=== PATIENT | female | born 1990 | race Caucasian/White ===

== ENCOUNTER 2017-02-12 14:22 | Emergency (ER) | payer SELFPAY ==
[~2017-02-12] VITALS: Ht 157.5 cm; Wt 60.0 kg
[~2017-02-12 14:22] MED LIST: CEPH500C3 PO; CLIN150 PO; DICL75 PO; IBUP600 PO; SULF1TAB47 PO
[2017-02-12 14:26] VITALS: BP 118/87; PULSE 16; PULSE 85; RESP 17; TEMP 98.2; O2SAT 98
[2017-02-12] MEDS ORDERED: CLINDAMYCIN PHOS 600 MG/4 ML VIAL IM ONE (14:45)
[2017-02-12] MEDS ORDERED: CLIN1CAP5 PO (14:50)
[2017-02-12] MEDS ORDERED: BACT800T5 PO (14:50)
--- NOTE | 2017-02-12 14:50 | PD ---
HPI Chief Complaint: Skin Problem Time Seen by Provider: 14:35 Travel History International Travel<30 days: No Contact w/Intl Traveler<30days: No Traveled to known affect area: No History of Present Illness HPI 26-year-old female complains of redness swelling pain left forearm. Patient has history IV drug abuse. Patient states that she started having infected lesions on the left forearm about 2 and half weeks ago. Patient states that her condition could worse since then. Patient denies any headache. Patient denies any chest pain or shortness of breath. Patient denies abdominal pain. Patient denies any back pain. Patient denies any focal weakness or numbness of the extremity. Patient denies any fever chills. Patient's up-to-date with TD booster. PFSH Past Medical History Anemia: Yes Diminished Hearing: No Integumentary: Yes (PSORIASIS) ?: Not LMP: 02/02/17 Social History Alcohol Use: No Tobacco Use: Yes Substance Use: Yes (HISTORY OF IV DRUG HISTORY) Allergies-Medications (Allergen,Severity, Reaction): Coded Allergies: No Known Allergies (Unverified , 06/25/13) Reported Meds & Prescriptions Reported Meds & Active Scripts Active Review of Systems General / Constitutional: No: Fever Eyes: No: Visual changes HENT: No: Headaches Cardiovascular: No: Chest Pain or Discomfort Respiratory: No: Shortness of Breath Gastrointestinal: No: Abdominal Pain Genitourinary: No: Dysuria Musculoskeletal: Positive: Pain Skin: No Rash Neurologic: No: Weakness Psychiatric: No: Depression Endocrine: No: Polydipsia Hematologic/Lymphatic: No: Easy Bruising Physical Exam Narrative GENERAL: Well-nourished, well-developed patient. SKIN: Focused skin assessment warm/dry. HEAD: Normocephalic. EYES: No scleral icterus. No injection or drainage. NECK: Supple, trachea midline. No JVD or lymphadenopathy. CARDIOVASCULAR: Regular rate and rhythm without murmurs, gallops, or rubs. RESPIRATORY: Breath sounds equal bilaterally. No accessory muscle use. GASTROINTESTINAL: Abdomen soft, non-tender, nondistended. MUSCULOSKELETAL: No cyanosis, or edema. BACK: Nontender without obvious deformity. No CVA tenderness. Patient has an area of redness swelling posterior aspect of proximal left forearm. No induration noted. Multiple ulcer lesions noted. Mild discharge noted. Full range of motion of the left elbow. Data Data Last Documented VS Vital Signs Date Time Temp Pulse Resp B/P (MAP) Pulse Ox O2 Delivery O2 Flow Rate FiO2 02/12/17 14:26 98.2 85 17 118/87 (97) 98 Orders Orders Clindamycin Inj (Cleocin Inj) (02/12/17 14:45) MDM Medical Decision Making Medical Screen Exam Complete: Yes Emergency Medical Condition: Yes Differential Diagnosis Differential diagnosis including cellulitis, abscess. Narrative Course 26-year-old female with history IV drug abuse, ulcerated lesions and redness swelling discharged left forearm. Clindamycin 600 mg IM. Polysporin ointment with dressing. Diagnosis Primary Impression: Cellulitis of left arm Patient Instructions: General Instructions Additional Instructions: Clindamycin and Bactrim DS as directed. Wound care daily. Follow with personal physician. Return if not improving in 2 days. Med/Other Pt SpecificInfo: Prescription(s) given Scripts Sulfamethoxazole-Trimethoprim (Bactrim DS) 800-160 Mg Tab 1 TAB PO BID for Infection, #20 TAB 0 Refills Prov: Tim Carrera MD 02/12/17 Clindamycin (Clindamycin) 150 Mg Cap 2 TAB PO Q6H for Infection, #80 CAP 0 Refills Prov: Tim Carrera MD 02/12/17 Disposition: 01 DISCHARGE HOME Condition: Stable Tim Carrera MD Feb 12, 2017 14:50
== END 2017-02-12 15:21 | disposition home or self-care (01) ==
LOC: NEPD 14:22
DX: L03.114 Cellulitis of left upper limb (principal); Z72.0 Tobacco use
CPT/HCPCS: 96372

== ENCOUNTER 2017-03-12 13:42 | Emergency (ER) | payer SELFPAY ==
[~2017-03-12] VITALS: Ht 157.5 cm; Wt 50.0 kg
[~2017-03-12 13:42] MED LIST changes: +BACT800T5 PO; -CEPH500C3 PO; -CLIN150 PO; +CLIN1CAP5 PO; -DICL75 PO; -IBUP600 PO; -SULF1TAB47 PO
[2017-03-12 13:46] VITALS: BP 122/66; TEMP 98.7; O2SAT 97
--- NOTE | 2017-03-12 13:51 | PD ---
Physical Exam Date Seen by Provider: Mar 12, 2017 Time Seen by Provider: 13:49 Data Data Last Documented VS Vital Signs Date Time Temp Pulse Resp B/P (MAP) Pulse Ox O2 Delivery O2 Flow Rate FiO2 03/12/17 13:46 98.7 104 18 122/66 (84) 97 MDM Supervised Visit with AD: No Narrative Course 26-year-old with PMH of IVDA female presents to the ED for evaluation of left elbow wound. Patient was seen in the ED "a few weeks ago," provided with prescriptions for clindamycin and Bactrim. Patient states that she only took about half of the antibiotics that were prescribed. Vitals reviewed. Patient seen in triage, awaiting bed placement. Kelsey Soto Mar 12, 2017 13:51
[2017-03-12 14:38] VITALS: O2SAT 100
[2017-03-12] MEDS ORDERED: SODIUM CHLOR 0.9% 1000 ML INJ 1,000 ML IV ONE (14:41)
[2017-03-12] MEDS ORDERED: KETOROLAC TROMETHAMINE 30 MG/ML (IVP) VIAL IV PUSH ONE (14:45)
[2017-03-12] MEDS ORDERED: VANCOMYCIN INJ 1,000 MG in SODIUM CHLOR 0.9% 250 ML INJ 250 ML IV ONE (14:45)
--- NOTE | 2017-03-12 15:07 | PD ---
HPI Chief Complaint: Skin Problem Time Seen by Provider: 14:33 Travel History International Travel<30 days: No Contact w/Intl Traveler<30days: No Traveled to known affect area: No History of Present Illness HPI 26-year-old female with history of IVDU (heroin), here for evaluation of left forearm infection. The patient was seen on 02/12/17 in the emergency department for cellulitis of the left forearm and was discharged home with clindamycin and Bactrim. She states that she took these antibiotics for the first 2 days, however she reports that she lost her prescription. Over the last 2 days she has had increasing pain and swelling to her left forearm. She last used intravenous drugs a couple days ago in her right arm. Pain is severe, constant , worse with movement and palpation. She denies fevers or chills. No chest pain or dyspnea. No trauma. PFSH Past Medical History Anemia: Yes Diminished Hearing: No Medical other: Yes (IV DRUG ABUSE) Integumentary: Yes (PSORIASIS) ?: Not Social History Alcohol Use: No Tobacco Use: Yes Substance Use: Yes (HISTORY OF IV DRUG HISTORY) Allergies-Medications (Allergen,Severity, Reaction): Coded Allergies: No Known Allergies (Unverified , 06/25/13) Reported Meds & Prescriptions Reported Meds & Active Scripts Active No Active Prescriptions or Reported Medications Review of Systems Except as stated in HPI: all other systems reviewed are Neg Physical Exam Narrative GENERAL: Well-developed, well-nourished, awake, alert, no apparent distress. SKIN: Left proximal/posterior forearm with large eschar with surrounding warmth and erythema as well as edema to the forearm with mild ecchymosis, no crepitus, mild induration, no fluctuance, no purulent drainage. HEAD: Atraumatic. Normocephalic. EYES: Pupils equal and round. No scleral icterus. No injection or drainage. ENT: Mucous membranes pink and moist. NECK: Trachea midline. No JVD. CARDIOVASCULAR: Tachycardic, rate 110, regular. No murmur. Distal pulses brisk and equal bilaterally. RESPIRATORY: No accessory muscle use. Clear to auscultation. Breath sounds equal bilaterally. GASTROINTESTINAL: Abdomen soft, non-tender, nondistended. MUSCULOSKELETAL: Skin exam as above. Moderate left forearm edema with diffuse tenderness, no crepitus, all compartments in the left forearm are soft. NEUROLOGICAL: Awake and alert. No obvious cranial nerve deficits. Motor grossly within normal limits. Normal speech. Normal sensation in the left upper extremity. PSYCHIATRIC: Appropriate mood and affect; insight and judgment normal. Data Data Last Documented VS Vital Signs Date Time Temp Pulse Resp B/P (MAP) Pulse Ox O2 Delivery O2 Flow Rate FiO2 03/12/17 14:38 100 Room Air 03/12/17 14:38 17 03/12/17 13:46 98.7 104 Orders Orders Complete Blood Count With Diff (03/12/17 14:41) Comprehensive Metabolic Panel (03/12/17 14:41) Prothrombin Time / Inr (Pt) (03/12/17 14:41) Act Partial Throm Time (Ptt) (03/12/17 14:41) Lactic Acid Sepsis Protocol (03/12/17 14:41) Blood Culture (03/12/17 14:41) Ecg Monitoring (03/12/17 14:41) Iv Access Insert/Monitor (03/12/17 14:41) Oximetry (03/12/17 14:41) Sodium Chlor 0.9% 1000 Ml Inj (Ns 1000 M (03/12/17 14:41) Vancomycin Inj (Vancomycin Inj) (03/12/17 14:45) Ketorolac Inj (Toradol Inj) (03/12/17 14:45) Ed Urine Pregnancytest Poc (03/12/17 14:41) Forearm (2vws) (03/12/17 ) Creatine Kinase (Cpk) (03/12/17 15:31) Diphenhydramine Inj (Benadryl Inj) (03/12/17 15:45) Labs Laboratory Tests Test 03/12/17 14:55 White Blood Count 8.3 TH/MM3 Red Blood Count 5.23 MIL/MM3 Hemoglobin 13.8 GM/DL Hematocrit 41.4 % Mean Corpuscular Volume 79.1 FL Mean Corpuscular Hemoglobin 26.4 PG Mean Corpuscular Hemoglobin Concent 33.4 % Red Cell Distribution Width 15.3 % Platelet Count 283 TH/MM3 Mean Platelet Volume 7.2 FL Neutrophils (%) (Auto) 55.1 % Lymphocytes (%) (Auto) 35.7 % Monocytes (%) (Auto) 7.4 % Eosinophils (%) (Auto) 1.5 % Basophils (%) (Auto) 0.3 % Neutrophils # (Auto) 4.6 TH/MM3 Lymphocytes # (Auto) 3.0 TH/MM3 Monocytes # (Auto) 0.6 TH/MM3 Eosinophils # (Auto) 0.1 TH/MM3 Basophils # (Auto) 0.0 TH/MM3 CBC Comment DIFF FINAL Differential Comment Prothrombin Time 10.9 SEC Prothromb Time International Ratio 1.0 RATIO Activated Partial Thromboplast Time 30.3 SEC Blood Urea Nitrogen 13 MG/DL Creatinine 0.62 MG/DL Random Glucose 89 MG/DL Total Protein 9.5 GM/DL Albumin 3.8 GM/DL Calcium Level 9.3 MG/DL Alkaline Phosphatase 151 U/L Aspartate Amino Transf (AST/SGOT) 36 U/L Alanine Aminotransferase (ALT/SGPT) 32 U/L Total Bilirubin 0.5 MG/DL Sodium Level 134 MEQ/L Potassium Level 4.1 MEQ/L Chloride Level 101 MEQ/L Carbon Dioxide Level 26.5 MEQ/L Anion Gap 7 MEQ/L Estimat Glomerular Filtration Rate 115 ML/MIN Lactic Acid Level 0.9 mmol/L Total Creatine Kinase 63 U/L [facility] Medical Decision Making Medical Screen Exam Complete: Yes Emergency Medical Condition: Yes Medical Record Reviewed: Yes Differential Diagnosis Cellulitis, abscess, osteomyelitis, myonecrosis, necrotizing fasciitis, sepsis, bacteremia, compartment syndrome unlikely. Narrative Course Initial vital signs show heart rate 104, blood pressure 122/66, pulse ox 97% on room air, oral temp of 98.7F. CBC: WBC 8.3, hemoglobin 13.8, hematocrit 41.4, platelets 283. CMP is unremarkable. Lactic acid is 0.9. CPK is 63. Left forearm x-ray: Findings consistent with proximal forearm cellulitis without soft tissue emphysema or bony erosive changes. Patient was given a dose of IV vancomycin, and shortly after receiving the antibiotic she developed diffuse pruritus. No rashes. Patient was made aware of all findings. I told her I would like to admit her for further IV antibiotic therapy, however she states she has a dog at home and is not prepared to be admitted at this time. She will leave AMA. She has a capacity to leave AMA. I will discharge her with a prescription for Bactrim and Keflex. She was instructed to follow-up with a primary care physician this week. She was told that she can return to the emergency department at any time and should return should she have any worsening symptoms or any other concerns. She understands the risks of leaving AMA including but not limited to , permanent disability, septic shock. AMA: The risks of leaving against medical advice without further evaluation treatment were discussed with the patient. These risks include cardiac dysfunction, cardiac dysrhythmia, possible heart attack, possible stroke or . The patient indicated understanding of these risks and appeared to have the capacity to make this decision. Diagnosis Primary Impression: Left against medical advice Additional Impressions: Cellulitis of left forearm IVDU (intravenous drug user) Referrals: Primary Care Physician 3 days Additional Instructions: Follow-up with a primary care physician this week. Take antibody as prescribed. Return to the emergency department for worsening symptoms or any other concerns. Scripts Cephalexin (Keflex) 500 Mg Cap 500 MG PO Q8H for Infection for 14 Days, #42 CAP 0 Refills Prov: Tyree Steele MD 03/12/17 Sulfamethoxazole-Trimethoprim (Bactrim DS) 800-160 Mg Tab 1 TAB PO BID for Infection for 14 Days, #28 TAB 0 Refills Prov: Tyree Steele MD 03/12/17 Disposition: 01 DISCHARGE HOME Condition: Stable Tyree Steele MD Mar 12, 2017 15:07
[2017-03-12 15:10] LABS: AUTOMATED NEUTROPHIL # 4.6 TH/MM3 (1.8-7.7); BASOPHIL % 0.3 % (0.0-2.0); EOSINOPHIL # 0.1 TH/MM3 (0-0.4); EOSINOPHIL % 1.5 % (0.0-4.0); HEMATOCRIT 41.4 % (35.0-46.0); HEMO FLAGS DIFF FINAL; LYMPH % 35.7 % (9.0-44.0); MEAN CELL VOLUME 79.1 FL (80.0-100.0); MEAN CORPUSCULAR HEMOGLOBIN 26.4 PG (27.0-34.0); MEAN CORPUSCULAR HGB CONC 33.4 % (32.0-36.0); MONO % 7.4 % (0.0-8.0); NEUT % 55.1 % (16.0-70.0); PLATELET COUNT 283 TH/MM3 (150-450); RED BLOOD COUNT 5.23 MIL/MM3 (4.00-5.30); RED CELL DISTRIBUTION WIDTH 15.3 % (11.6-17.2); WHITE BLOOD COUNT 8.3 TH/MM3 (4.0-11.0)
--- NOTE | 2017-03-12 15:33 | RADRPT ---
EXAM DATE/TIME: 03/12/2017 15:01 [facility] COMPARISON: No previous studies available for comparison. INDICATIONS : Pain near open wound on left forearm. Wound check for possible free air. MEDICAL HISTORY : None. SURGICAL HISTORY : None. ENCOUNTER: Initial ACUITY: 2 weeks PAIN SCORE: 7/10 LOCATION: Left Forearm FINDINGS: Diffuse soft tissue swelling in the region of the proximal forearm. No significant radiopaque foreign body or subcutaneous emphysema. Osseous structures appear intact without evidence for fracture or sharad ny erosion. CONCLUSION: Findings consistent with proximal forearm cellulitis without soft tissue emphysema or bony erosive ch lupe. Lalit Lainez MD on March 12, 2017 at 15:31 Board Certified Radiologist. This report was verified electronically.
[2017-03-12 15:37] LABS: ALT (GPT) 32 U/L (10-53)
[2017-03-12 15:40] LABS: ALKALINE PHOSPHATASE 151 U/L (45-117); ANION GAP 7 MEQ/L (5-15); AST (GOT) 36 U/L (15-37); BICARBONATE 26.5 MEQ/L (21.0-32.0); BLOOD UREA NITROGEN 13 MG/DL (7-18); CHLORIDE 101 MEQ/L (98-107); GLOMERULAR FILTRATION RATE 115 ML/MIN (>89); POTASSIUM 4.1 MEQ/L (3.5-5.1); SODIUM (NA) 134 MEQ/L (136-145); TOTAL BILIRUBIN ADULT 0.5 MG/DL (0.2-1.0)
[2017-03-12] MEDS ORDERED: diphenhydrAMINE HCL 50 MG/ML VIAL IV PUSH ONE (15:45)
[2017-03-12 15:48] LABS: APTT (PATIENT) 30.3 SEC (24.3-30.1); PROTHROMBIN TIME - PATIENT 10.9 SEC (9.8-11.6)
[2017-03-12] MEDS ORDERED: CEPH-460 PO (17:01)
[2017-03-12] MEDS ORDERED: BACT800T5 PO (17:01)
[2017-03-12 18:02] VITALS: BP 124/68
== END 2017-03-12 18:03 | disposition left against medical advice (07) ==
LOC: NEPE 13:42
DX: L03.114 Cellulitis of left upper limb (principal); D64.9 Anemia, unspecified; Z72.0 Tobacco use
CPT/HCPCS: 73090; 80053; 82550; 83605; 84703; 85025; 85610; 85730; 87040; 96365; 96375; 99285; J1200; J1885; J3370; J7030; J7050